=== PATIENT | female | born 1965 | race Caucasian/White ===

== ENCOUNTER 2018-11-18 06:31 | Day surgery (SDC) | payer OTHER, BC ==
[~2018-11-18] VITALS: Ht 152.4 cm; Wt 50.2 kg
[~2018-11-18 06:31] MED LIST: BUPIVACAINE/PF 0.25% ONE; EPINEPHRINE 1 MG/ML, 1ML ONE; NONE PER PT
[2018-11-18] MEDS ORDERED: LACTATED RINGERS 1,000 ML IV SCH (07:03)
[2018-11-18 07:13] VITALS: BP 113/52
[2018-11-18] MEDS ORDERED: FENTANYL PF 100 MCG/2ML ONE (07:24)
[2018-11-18] MEDS ORDERED: MIDAZOLAM 1 MG/ML, 2ML ONE (07:24)
[2018-11-18] MEDS ORDERED: ACETAMINOPHEN 500 MG TABLET PO ONE (07:30)
[2018-11-18] MEDS ORDERED: FAMOTIDINE 20 MG TABLET PO ONE (07:30)
[2018-11-18] MEDS ORDERED: GABAPENTIN 300 MG CAPSULE PO ONE (07:30)
[2018-11-18] MEDS ORDERED: ONDANSETRON 2MG/ML, 2ML IV PRN (08:00)
[2018-11-18] MEDS ORDERED: PROMETHAZINE 25 MG/ML, 1ML IV PRN (08:00)
[2018-11-18] MEDS ORDERED: ONDANSETRON ODT 8 MG PO PRN (08:00)
[2018-11-18] MEDS ORDERED: OXYcodone 5 MG/5 ML ORAL.SOL UDC PO PRN (08:00)
[2018-11-18] MEDS ORDERED: LORazepam 2 MG/ML, 1ML IVPush PRN (08:00)
[2018-11-18] MEDS ORDERED: FENTANYL PF 100 MCG/2ML IV PRN (08:00)
[2018-11-18] MEDS ORDERED: MEPERIDINE/PF 25MG/0.5ML IVPush PRN (08:00)
[2018-11-18] MEDS ORDERED: HYDROmorphone 2 MG/ML, 1ML IVPush PRN (08:00)
[2018-11-18] MEDS ORDERED: CEFAZOLIN 1,000 MG ONE (08:37)
[2018-11-18] MEDS ORDERED: PROPOFOL 10 MG/ML, 20ML ONE (08:37)
[2018-11-18] MEDS ORDERED: DEXAMETHASONE 4 MG/ML, 1ML ONE (08:37)
[2018-11-18] MEDS ORDERED: ONDANSETRON 2MG/ML, 2ML ONE (08:37)
[2018-11-18] MEDS ORDERED: ROCURONIUM 10 MG/ML,10ML ONE (08:37)
[2018-11-18] MEDS ORDERED: EPHEDRINE 50 MG/ML, 1ML ONE (08:37)
[2018-11-18] MEDS ORDERED: SUCCINYLCHOLINE 20 MG/ML, 10ML ONE (08:37)
== END 2018-11-18 13:00 | disposition home or self-care (01) ==
LOC: OUT 06:31
PROVIDERS: ATTEND Orthopaedic Surgery
DX: S43.431A Superior glenoid labrum lesion of right shoulder, initial encounter (principal); M75.111 Incomplete rotator cuff tear or rupture of right shoulder, not specified as traumatic; M66.821 Spontaneous rupture of other tendons, right upper arm; M75.41 Impingement syndrome of right shoulder; M75.51 Bursitis of right shoulder; X58.XXXA Exposure to other specified factors, initial encounter; Y93.89 Activity, other specified; Y92.89 Other specified places as the place of occurrence of the external cause; Y99.8 Other external cause status; Z88.6 Allergy status to analgesic agent
CPT/HCPCS: 29823; 29826; 29827; 29828; 64415; C1713; J0330; J0690; J1100; J2250; J2405; J2704; J3010; J3490; J7120; J0171